=== PATIENT | female | born 1940 | race Caucasian/White ===

== ENCOUNTER 2016-12-19 08:18 | Outpatient (CLI) | payer MEDICARE ==
[~2016-12-19] VITALS: Ht 165.1 cm; Wt 68.2 kg
--- NOTE | ~2016-12-19 | HEMODYNAMI ---
PATIENT:COLT ALEJO MEDICAL RECORD: [id number] : 36 LOCATION:[facility] ADMISSION DATE: 12/19/16 Generatedon:12/19/201611:47 Patient name: COLT ALEJO Patient #: [id number] SSN: D OB: 1940 Date of study: 12/19/2016 Page: Of Hemodynamic Procedure Report Patient Data Patient Demographics Procedure consent was obtained First Name: COLT Gender: Female Last Name: SAPNA : 1940 [facility] Initial: C Age: 76 year(s) Patient #: [id number] Race: Additional ID: [id number] Contact details [address]: [address] [place] [address] State: [place] City: [place] Zip code: [address] Past Medical History Allergies: No known allergies Admission Admission Data Admission Date: 12/19/2016 Admission Time: 8:18 Height (in.): 65 BSA: 1.75 (m2) Height (cm.): 165.1 BMI: 24.96 (kg/m2) Weight (lbs.): 150 Weight (kg.): 68.04 Lab Results Lab Result Date: 12/19/2016 Lab Result Time: 0:00 Biochemistry Name Units Result Min Max BUN mg/dl 13 --(--*-)-- 7 18 Creatinine mg/dl 0.9 --(-*--)-- 0.6 1.3 CBC Name Units Result Min Max Hemoglobin g/dl 11.7 *-(----)-- 13.5 17.5 Procedure Procedure Types Cath Procedure Diagnostic Procedure C [facility] w/Coronaries PCI Procedure Coronary Stent Initial Miscellaneous Procedures Moderate Sedation up to 15 minutes Procedure Description Procedure Date Procedure Date: 12/19/2016 Procedure Start Time: 11:32 Procedure End Time: 11:44 Procedure Staff Name Function Bassem Schaeffer MD Performing Physician Josue Campos RT Scrub Amos Javier RN Nurse Job [place] 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 Jovany Suit RT Monitor Procedure Data Cath Procedure Contrast Material Contrast Material Type Amount (ml) Isovue 300 60 Entry Location Entry Primary Successful Side Size Upsize Upsize Entry Closure Succes sful Closure Location (Fr) 1 (Fr) 2 (Fr) Remarks Device Remarks Femoral Right 5 Fr 6 Fr Vascade artery Short Closure System Diagnostic catheters Device Type Used For End Catheter Placement Cordis 5Fr Pigtail LV Angiography Catheter (MP) Cordis 5Fr JL 4.0 Left Coronary Catheter (MP) Angiography Cordis 5Fr 3DRC Catheter Right Coronary (MP) Angiography Procedure Complications No complications Procedure Medications Medication Administration Route Dosage Oxygen NC 2 l/min Phenergan 25 0.9% NaCl I.V. 100 ml/hr Lidocaine 2% added to field 20 Heparin Flush Bag added to field 2 bags (1000units/500ml NS) Versed I.V. 1 mg Fentanyl I.V. 50 mcg unlisted medication 1.5 mg Heparin Bolus I.V. 4000 units Versed I.V. 1 mg Fentanyl I.V. 50 mcg Versed I.V. 1 mg Hemodynamics Rest BSA: 1.75 (m2) HGB: 11.7 (g/dl) O2 Consumption: Estimated: 162.27 (ml/min) O2 Co nsumption indexed: Estimated:92.73 (ml/min/m) Heart Rate: 76 (bpm) Pressure Samples Time Site Value (mmHg) Purpose Heart Use Rate(bpm) 11:33 AO 154/34(72) Snapshot 74 Snapshots Pre Cath Intra NCS Post Cath Vital Signs Time Heart Resp SPO2 etCO2 AP3kjfs NIBP (mmHg) Rhythm Pain Sedation Rate (ipm) (%) (mmHg) (mmHg) Status Level (bpm) 11:18:05 76 21 97 0 0 No Cuff NSR 0 (11) 10(A) , No pain 11:22:05 78 20 100 0 0 No Cuff NSR 0 (11) 10(A) , No pain 11:26:23 78 16 99 0 0 157/76(101) NSR 0 (11) 10(A) , No pain 11:30:41 72 17 95 0 0 147/69(108) NSR 0 (11) 9(A) , No pain 11:35:01 77 18 97 0 0 147/71(99) NSR 0 (11) 9(A) , No pain 11:39:21 87 16 98 0 0 130/67(99) NSR 0 (11) 9(A) , No pain 11:43:37 85 16 99 0 0 137/64(100) NSR 0 (11) 10(A) , No pain Medications Time Medication Route Dose Verified Delivered Reason N otes Effectiveness by by 11:17:02 Phenergan I.V.PB over 25 Bassem Buffie used for p t has 10 min mg/50 Laury Javier RN procedure severe ml NS N/V with sedation 11:17:02 Oxygen NC 2 Bassem Buffie used for l/min Laury Javier RN procedure 11:17:48 0.9% NaCl I.V. 100 Bassem Buffie Per physician ml/hr Laury Javier RN 11:17:56 Lidocaine 2% added to 20ml Bassem Bassem for local field vial Laury Schaeffer MD anesthetic 11:18:13 Heparin Flush added to 2 Bassem Bassem used for Bag field bags Laury Schaeffer MD procedure (1000units/500ml NS) 11:29:30 Versed I.V. 1 mg Bassem Buffie for sedation Laury Javier RN 11:29:36 Fentanyl I.V. 50 Bassem Buffie for sedation mcg Laury Javier RN 11:32:45 scopolamine transdermal 1.5 Bassem Buffie Per physician patch mg Laury Javier RN 11:34:15 Fentanyl I.V. 50 Bassem Buffie for sedation mcg Laury Javier RN 11:34:50 Versed I.V. 1 mg Bassem Buffie for sedation Laury Javier RN 11:36:43 Heparin Bolus I.V. 4000 Bassemswapnil Atkinsie for v erified units Laury Javier RN anticoagulation with dr schaeffer 11:40:21 Versed I.V. 1 mg Bassem Buffie for sedation Laury Javier RN Procedure Log Time Note 11:04:57 Informed consent obtained and on chart 11:05:28 Job ÁLVAREZ(R) sent for patient. Start room use. 11:08:40 Patient received from Post Procedure Room to CCL 1 Alert and oriented. Tansferred to table in Supine position. 11:08:41 Warm blankets applied, and mehdi hugger turned on for patient comfort. 11:08:41 Correct patient and procedure confirmed by team. 11:08:42 ECG and BP/O2 sat monitors applied to patient. 11:17:02 Phenergan 25 mg/50 ml NS I.V.PB over 10 min was given by Amos Javier RN; used for procedure; pt has severe N/V with sedation 11:17:02 Oxygen 2 l/min NC was given by Amos Javier RN; used for procedure; 11:17:15 Vital chart was started 11:17:48 0.9% NaCl 100 ml/hr I.V. was given by Amos Javier RN; Per physician; 11:17:56 Lidocaine 2% 20ml vial added to field was given by Bassem Schaeffer MD; for local anesthetic; 11:18:13 Heparin Flush Bag (1000units/500ml NS) 2 bags added to field was given by Bassem Schaeffer MD; used for procedure; 11:21:57 Baseline sample Acquired. 11:22:05 Rhythm: sinus rhythm 11:22:14 Full Disclosure recording started 11:25:32 H&P Date Dictated: 12/15/2016 Within 30 days and on chart., H&P Addendum completed by physician on day of procedure. (MUST COMPLETE FOR ALL OUTPATIENTS). 11:25:33 Pre-procedure instructions explained to patient. 11:25:34 Pre-op teaching completed and patient verbalized understanding. 11:25:35 Family in waiting room. 11:25:37 Patient NPO since Midnight. 11:25:48 Patient allergic to No known allergies 11:25:51 Is the patient allergic to Iodine/contrast media? No. 11:25:54 Is patient on blood thinner?Yes 11:26:07 ACC The patient was administered the following blood thiners within the last 24 hours: ACCPlavix 11:26:13 Patient diabetic? No. 11:26:15 ----Pre-sedation anethsthesia assessment.---- 11:26:18 Previous problem with sedation/anesthesia? No ? 11:26:22 Snore? Yes 11:26:24 Sleep apnea? No 11:26:26 Deviated septum? No 11:26:28 Opens mouth fully? Yes 11:26:29 Sticks out tongue? Yes 11:26:32 Airway obstruction? No ? 11:26:34 Dentures? No ? 11:26:38 Pre procedure: right dorsailis pedis pulse 1+ Palpable, but thready & weak; easily obliterated 11::44 Patient pain scale 0/10 ?. 11:27:04 IV patent on arrival in left forearm with 0.9% NaCl at 10ml/hr. 11:: Lab results completed and on chart. :: Lab Result : BUN 13 mg/dl :: Lab Result : Hemoglobin 11.7 g/dl :: Lab Result : Creatinine 0.9 mg/dl 11::32 Right groin area was prepped with chlora-prep and draped in sterile fashion :: Alarms reviewed by R. N. 11::33 Sharps counted by scrub and verified by R.N. 11::13 --------ALL STOP TIME OUT------ :13 Final Timeout: patient, procedure, and site verified with staff and physician. All members of the team are in agreement. 11::15 Right groin site verified by team. 11::18 Physical assessment completed. ASA score P 2 - A patient with mild systemic disease as per Bassem Schaeffer MD. 11:28:23 Sedation plan: IV Moderate Sedation Versed, Fentanyl 11::58 Use device set Femoral Dx 11::59 Acist Syringe opened to sterile field. 11::59 Bag Decanter opened to sterile field. 11::59 Cardinal Cath Pack opened to sterile field. 11:29:00 Terumo 5Fr [place] Sheath opened to sterile field. 11::00 St Darrin 260cm J .035 wire opened to sterile field. 11:29:02 Acist Hand Control opened to sterile field. 11::02 Acist Manifold opened to sterile field. 11:29:02 Cordis Infinity 5Fr Multipack catheter opened to sterile field. 11:29:04 Tegaderm 4 x 4 opened to sterile field. 11::30 Versed 1 mg I.V. was given by Amos Javier RN; for sedation; 11::36 Fentanyl 50 mcg I.V. was given by Amos Javier RN; for sedation; 11:29:54 Patient Height : 65 inches 11::58 Patient Weight : 150 lbs 11:32:01 Procedure started. 11:32:06 Local anesthetic to right femoral artery with Lidocaine 2% by Bassem Schaeffer MD.INITIAL ACCESS ONLY 11:32:14 A 5 Fr sheath was inserted into the Right Femoral artery 11:32:21 A Cordis 5Fr Pigtail Catheter (MP) was advanced over the wire and used for LV Angiography. 11:32:25 Zero performed for pressure channel P1 11:32:31 Zero performed for pressure channel P1 11:32:45 scopolamine 1.5 mg transdermal patch was given by Amos Javier RN; Per physician; 11:32:46 LV gram done using OCNNORS 11:32:48 LV angiography performed. 11:33:42 EF : 60 % 11:33:44 Catheter removed. 11:33:51 A Cordis 5Fr JL 4.0 Catheter (MP) was advanced over the wire and used for Left Coronary Angiography. 11:34:13 LCA angiography performed. 11:34:15 Fentanyl 50 mcg I.V. was given by Amos Javier RN; for sedation; 11:34:48 Catheter removed. 11:34:50 Versed 1 mg I.V. was given by Amos Javier RN; for sedation; 11:35:05 A Cordis 5Fr 3DRC Catheter (MP) was advanced over the wire and used for Right Coronary Angiography. 11:35:09 RCA angiography performed. 11:35:22 Catheter removed. 11:36:03 GoLark BasixCompak Inflation Kit opened to sterile field. 11:36:03 Boyer Whisper J 300cm 0.014 guide wire opened to sterile field. 11:36:04 Terumo 6Fr [place] Sheath opened to sterile field. 11:36:13 ACC PCI Site: mLAD has 80% stenosis. 11:36:16 ACC Pre-intervention MACRINA Flow is 2. 11:36:22 Sheath upsized to a 6 Fr Short. 11:36:38 6 Fr XBLAD 3.5 guide catheter was inserted over the wire 11:36:43 Heparin Bolus 4000 units I.V. was given by Amos Javier RN; for anticoagulation; verified with dr schaeffer 11:36:46 Cordis 6FR XBLAD 3.5 guide catheter opened to sterile field. 11:36:53 WHISPER wire advanced. 11:37:09 Procedure type changed to Cath procedure, Diagnostic procedure, C, [facility] w/Coronaries, PCI procedure, Coronary Stent Initial, Miscellaneous Procedures, Moderate Sedation up to 15 minutes 11:39:20 Inflation Number: 1 A Medtronic Resolute 2.5 X 18 stent was prepped and advanced across the Mid LAD. The stent was deployed at 24 KIRT for 0:18 (min:sec). 11:39:48 ACC Post-intervention MACRINA Flow is 3. 11:39:49 Stent catheter was removed intact over wire. 11:40:12 Wire removed. 11:40:13 Guide catheter removed. 11:40:21 Versed 1 mg I.V. was given by Amos Javier RN; for sedation; 11:40:29 Contrast amount:Isovue 300 60ml. 11:40:35 Sheath removed intact; hemostasis achieved with Vascade Closure System to the Right Femoral artery. 11:40:43 Vascade 6/7 Fr Closure Device opened to sterile field. 11:40:47 Procedure ended.(Physican Out) 11:42:57 Post-op/insertion site Right Femoral artery dressed using a 4 x 4 and Tegaderm. 11:43:00 Post right femoral artery:stable 11:43:01 Post Procedure Pulses reassessed and unchanged 11:43:03 Post procedure: right dorsailis pedis pulse 1+ Palpable, but thready & weak; easily obliterated. 11:43:06 Post procedure rhythm: sinus rhythm 11:43:08 Post procedure instruction explained to patient.Patient verbalizes understanding. 11:43:43 Procedure and supply charges have been captured, reviewed, submitted and are correct. 11:44:09 Procedure Complication : No complications 11:44:11 Vital chart was stopped 11:44:11 See physician's report for complete and final results. 11:44:14 Report given to Post Procedure Room. 11:44:17 Patient transfered to Post Procedure Room with Stretcher. 11:44:18 Procedure ended. 11:44:18 Full Disclosure recording stopped 11:44:38 ACC-PCI Only Patient was given prescriptions, or instructed by Bassem Schaeffer MD to start/continue the following medications upon discharge: Plavix 11:44:39 End room use (Document Last) Intervention Summary Intervention Notes Time ActionType Lesion and Equipment Action# Pressure Duration Attributes Used 11:39:20 Place stent Mid LAD Medtronic 1 24 00:18 Resolute 2.5 X 18 stent Device Usage Item Name Manufacture Quantity Catalog Hospital Part Current Minima l Lot# / Number Charge Number Stock Stock Serial# Code Acist Acist 1 21216 711025 369534 010508 20 Syringe Medical Systems Inc Bag Microtek 1 2002S 646422 10976 783498 5 Decanter Medical Inc. Cardinal Cardinal [address] 074267 15147 838759 5 Cath Pack Health Terumo 5Fr Terumo 1 [id number] 555504 634222 795289 [address] St Darrin 1 434811 201696 246253 808381 30 260cm J .035 wire Acist Hand Acist 1 89587 492885 388226 464969 5 Control Medical Systems Inc Acist Acist 1 44303 228704 542389 916945 5 Manifold Medical Systems Inc Cordis Cardinal 1 [id number] 422242 75245 652659 30 Infinity Health 5Fr Multipack catheter Tegaderm 4 3M 1 1626W 882228 017192 034768 5 x 4 Cordis 5Fr Cardinal 1 633942 5 Pigtail Health Catheter (MP) Cordis 5Fr Cardinal 1 432416 5 JL 4.0 Health Catheter (MP) Cordis 5Fr Cardinal 1 138785 5 3DRC Health Catheter (MP) Merit Merit 1 [id number] 282214 167980 196761 15 BasixCompak Medical Inflation Kit Boyer Boyer 1 [id number] 570835 542312 197642 5 Whisper J Vascular 300cm 0.014 guide wire Terumo 6Fr Terumo 1 [id number] 068066 802929 248008 40 [place] Sheath Cordis 6FR Cardinal 1 [id number] 270772 703739 319537 10 XBLAD 3.5 Health guide catheter Medtronic Medtronic 1 [id number] 939523 177631 3 [id number] Resolute 2.5 X 18 stent Vascade 04/19 Cardiva 1 [id number] 431572 509912 921418 5 Fr Closure Medical, Device Inc. Signature Audit [place] Stage Time Signature Unsigned Intra-Procedure 12/19/2016 Jovany Barone 11:47:51 AM RT(R) Signatures Monitor : Jovany Barone RT Signature : Date : Time : [address] [place] [address]
[~2016-12-19 08:18] MED LIST: ALTACE5 MG PO; AMITRIPTYLINE100 MG PO; ATIVAN1 MG PO; BAYER CHEWABLE81 MG PO; COREG6.25 MG PO; LOPRESSOR25 MG PO; PLAVIX75 MG PO; PRAVACHOL40 MG PO; PRILOSEC20 MG PO
[2016-12-19 08:53] VITALS: BP 162/66; Ht 165.1 cm; Wt 68.2 kg
[2016-12-19 09:03] LABS: BASOPHILS 0.6 % (0.0-2.0); EOSINOPHILS 2.1 % (0-7); HEMATOCRIT 37.2 % (36.0-48.0); HEMOGLOBIN 11.7 g/dL (12-16); IMMATURE GRANULOCYTES 0.1 % (0-5); LYMPHOCYTES 28.1 % (15-50); MCH 25.5 pg (26.0-34.0); MCHC 31.5 g/dL (31.0-37.0); MEAN PLATELET VOLUME 9.7 fL (7.4-10.4); MONOCYTES 6.7 % (2-11); NEUTROPHILS 62.4 % (40-80); PLATELET COUNT 338 10x3/uL (130-400); RBC 4.59 10x6/uL (4.00-5.40); RDW 14.4 % (11.5-14.5)
[2016-12-19 09:21] LABS: ANION GAP 14.3 mmol/L (8-16); CALCIUM 8.9 mg/dL (8.5-10.1); CARBON DIOXIDE 24.8 mmol/L (21.0-32.0); CREATININE - SERUM 0.9 mg/dL (0.6-1.3); POTASSIUM - SERUM 4.1 mmol/L (3.5-5.1)
[2016-12-19] MEDS ORDERED: PLAVIX75 MG PO (11:53)
--- NOTE | 2016-12-19 12:26 | NUR ---
6 FR VASCADE R/GROIN CDI NO BLEEDING NO HEMATOMA NOTED. INSTRUCTED PATIENT TO KEEP RLE STRAIGHT WITH HEAD FLAT ON PILLOW SANDWICH AND SODA TO BEDSIDE WITH TO ASSIST.
--- NOTE | 2016-12-19 12:52 | NUR ---
VSS WITH 6 FR VASCADE R/GROIN CDI NO BLEEDING NO HEMATOMA NOTED. CHEST PAIN IS DENIED WILL MONITOR
--- NOTE | 2016-12-19 14:11 | NUR ---
VOIDED 300CC VIA BEDPAN, R GROIN REMAINS C/D/I WITH NO HEMATOMA OR BLEEDING.
--- NOTE | 2016-12-19 15:56 | NUR ---
PIV REMOVED FROM LEFT ARM WITH BANDAID APPLIED. UP TO BEDSIDE TO DRESS WITH AT BEDSIDE. R GROIN REMAINS C/D/I WITH NO HEMATOMA OR BLEEDING. D/C INSTRUCTIONS DISCUSSED WITH PATIENT AND AT BEDSIDE. WHEELED OUT VIA WHEELCHAIR BY CATH TEAM
--- NOTE | 2016-12-22 13:59 | OP ---
PATIENT NAME: COLT ALEJO MEDICAL RECORD: [id number] :36 LOCATION:D.CAT ADMISSION DATE: SURGEON: CARLA BARAJAS MD DATE OF OPERATION: 12/19/2016 PROCEDURES: 1. PTCA stent LAD. 2. Left heart catheterization. 3. Selective coronary angiography. 4. Left ventriculogram. INDICATION: Angina and coronary artery disease. PROCEDURE IN DETAIL: After informed consent was obtained and after detailed explanation of risks, benefits as well as alternative therapies, the patient elected to proceed with angiogram and angioplasty. The right femoral area was prepped and draped in normal sterile fashion. The right femoral artery was cannulated via modified Seldinger technique with placement of 6-[place] Island[place] sheath. All catheters exchanged through this sheath. FINDINGS: Left ventriculogram was performed in standard 30-degree CONNORS view reveals preserved cardiac wall motion, ejection fraction is 60%. SELECTIVE CORONARY ANGIOGRAPHY: 1. Left main showed no significant angiographic disease. 2. Left anterior descending has previously placed stents. There is 80% in-stent restenosis times 2. 3. Left circumflex shows moderate irregularities, but no flow-limiting stenosis. 4. The right coronary has previously placed stents with no significant restenosis. No disease elsewise throughout the RCA or its branches. PTCA STENT OF THE LAD: The stent used covering both areas of in-stent restenosis with a 2.5 x 18-mm Resolute taken to 21 atmospheres. Result was 0% residual stenosis. OVERALL IMPRESSION: Successful percutaneous transluminal coronary angioplasty stent of the left anterior descending going from 80% initial stenosis, in-stent restenosis to 0% residual. TRANSINT:[id number] Voice Confirmation ID: [id number] DOCUMENT ID: [id number] CARLA BARAJAS MD at 1359 CC: [id number] DICTATION DATE: 12/19/16 1148 [employer] TECHNICIAN: 12/19/16 1324 DEP CLI 12/19/[address] [address]
== END 2016-12-19 16:06 | disposition home or self-care (01) ==
LOC: D.CATH 08:18
PROVIDERS: Internal Medicine Interventional Cardiology
DX: I25.119 Atherosclerotic heart disease of native coronary artery with unspecified angina pectoris (principal); T82.855A Stenosis of coronary artery stent, initial encounter
CPT/HCPCS: 93458; C9600